=== PATIENT | male | born 1945 | race Caucasian/White ===

== ENCOUNTER → 2018-07-23 | Outpatient (CLI) | payer MEDICARE, OTHER ==
[2018-07-23] MEDS: REGADENOSON 0.4 MG/5 ML SYG (13:05)
== END | disposition home or self-care (01) ==
LOC: EKG 10:23
DX: Z01.818 Encounter for other preprocedural examination (principal)
CPT/HCPCS: 78452; 93017

== ENCOUNTER 2018-08-19 03:15 | Observation (INO) | payer MEDICARE, OTHER ==
[2018-08-19] MEDS: ASPIRIN 325 MG TAB PO (03:19)
[2018-08-19] MEDS: LIDOCAINE/MYLANTA 40 ML BTL PO (04:15)
[2018-08-19] MEDS: morphine 2 MG INJ IV ×3 (04:20→18:59)
[2018-08-19] MEDS: ONDANSETRON 4 MG INJ IV (04:20)
[2018-08-19 04:21] LABS: ADD MAN DIFF? NO
[2018-08-19 04:23] LABS: WHITE BLOOD COUNT 10.2 10^3/ul (4.8-10.8)
[2018-08-19 04:23] LABS: BASOPHILS % 0.3 % (0.0-2.0); EOSINOPHILS # 0.1 10^3/ul (0.0-0.5); EOSINOPHILS % 0.6 % (0.0-7.0); HEMATOCRIT 36.4 % (42.0-52.0); HEMOGLOBIN 10.9 g/dl (14.0-18.0); LYMPHOCYTES # 1.2 10^3/ul (0.8-2.9); LYMPHOCYTES % 11.7 % (15.0-51.0); MEAN CORPUSCULAR HEMOGLOBIN 28.9 pg (29.0-33.0); MEAN CORPUSCULAR HGB CONC 29.9 g/dl (32.0-37.0); MEAN CORPUSCULAR VOLUME 96.6 fl (82.0-101.0); MEAN PLATELET VOLUME 10.3 fl (7.4-10.4); MONOCYTES % 9.7 % (0.0-11.0); NEUTROPHIL # 7.7 10^3/ul (1.6-7.5); NEUTROPHILS % 75.6 % (39.0-77.0); PLATELET COUNT 313 10^3/UL (140-415); RED BLOOD COUNT 3.77 10^6/ul (4.70-6.10); RED CELL DISTRIBUTION WIDTH 16.2 % (11.5-14.5)
[2018-08-19 04:41] LABS: ANION GAP 10 (8-16); BLOOD UREA NITROGEN 36 mg/dl (7-20); CALCIUM 9.3 mg/dl (8.4-10.2); CARBON DIOXIDE 39 mmol/L (21-31); CHLORIDE 100 mmol/L (97-110); CREATININE 0.77 mg/dl (0.61-1.24); GLUCOSE 163 mg/dl (70-220); POTASSIUM 4.4 mmol/L (3.5-5.1); SODIUM 145 mmol/L (135-144)
[2018-08-19 04:53] LABS: B-TYPE NATRIURETIC PEPTIDE 1140 PG/ML (0-125); TROPONIN-I 0.014 ng/ml (0.000-0.120)
[2018-08-19] MEDS ORDERED: ONDANSETRON 4 MG INJ IV (07:00)
[2018-08-19] MEDS ORDERED: NACL 0.9% 3 ML SYG IV (07:00)
[2018-08-19] MEDS ORDERED: ACETAMINOPHEN 325 MG TAB PO (07:00)
[2018-08-19] MEDS ORDERED: NITROGLYCERIN (SL) 0.4 MG TAB SL (07:00)
[2018-08-19] MEDS ORDERED: BISACODYL 10 MG SUPP PR (08:00)
[2018-08-19] MEDS ORDERED: NAPROXEN 500 MG TAB PO (08:30)
[2018-08-19] MEDS: MAGNESIUM OXIDE 400 MG TAB PO ×2 (10:44→20:48)
[2018-08-19] MEDS: FLUOXETINE 20 MG CAP PO (10:44)
[2018-08-19] MEDS: ASPIRIN 81 MG TAB PO (10:45)
[2018-08-19] MEDS: MULTIVITAMINS THERAPEUTIC TAB PO (10:46)
[2018-08-19] MEDS: GABAPENTIN 300 MG CAP PO (10:46)
[2018-08-19] MEDS: LOSARTAN 50 MG TAB PO (10:46)
[2018-08-19] MEDS: PANTOPRAZOLE (EC) 40 MG TAB PO (10:46)
[2018-08-19] MEDS: MAGNESIUM HYDROXIDE 30ML CUP PO (10:47)
[2018-08-19] MEDS: FERROUS SULFATE (EC) 325 MG TAB PO (10:47)
[2018-08-19] MEDS: HEPARIN 5,000 UNIT/0.5 ML VIAL SC ×2 (11:00→21:15)
[2018-08-19 14:36] LABS: CREATINE KINASE 29 IU/L (23-200)
[2018-08-19] MEDS: GUAIFENESIN/DM 5ML CUP PO (14:44)
[2018-08-19 14:47] LABS: CK INDEX 3.9; CK-MB 1.14 ng/ml (0.0-2.4); TROPONIN-I < 0.012 ng/ml (0.000-0.120)
[2018-08-19] MEDS ORDERED: HYDROCODONE/APAP (5/325) TAB PO (19:00)
[2018-08-19 19:56] LABS: INR 0.85; PROTIME 11.7 Sec (11.9-14.9); PT RATIO 0.9
[2018-08-19 19:58] LABS: CREATINE KINASE 40 IU/L (23-200)
[2018-08-19 20:09] LABS: CK INDEX 3.1
[2018-08-19 20:11] LABS: TROPONIN-I 0.015 ng/ml (0.000-0.120)
[2018-08-19 20:17] LABS: CK-MB 1.22 ng/ml (0.0-2.4)
[2018-08-19 20:18] LABS: VALPROATE 21 ug/ml (50-100)
[2018-08-19] MEDS: TAMSULOSIN (SR) 0.4 MG CAP PO (20:48)
[2018-08-19] MEDS: ATORVASTATIN 40 MG TAB PO (20:48)
[2018-08-19] MEDS: DOCUSATE SODIUM 100 MG CAP PO (20:48)
[2018-08-19] MEDS: DIVALPROEX (ER) 500 MG TAB PO (20:49)
[2018-08-20 06:38] LABS: ADD MAN DIFF? NO
[2018-08-20 06:41] LABS: BASOPHILS % 0.4 % (0.0-2.0); EOSINOPHILS # 0.1 10^3/ul (0.0-0.5); EOSINOPHILS % 1.8 % (0.0-7.0); HEMATOCRIT 35.1 % (42.0-52.0); HEMOGLOBIN 10.2 g/dl (14.0-18.0); LYMPHOCYTES # 1.4 10^3/ul (0.8-2.9); LYMPHOCYTES % 18.9 % (15.0-51.0); MEAN CORPUSCULAR HEMOGLOBIN 28.7 pg (29.0-33.0); MEAN CORPUSCULAR HGB CONC 29.1 g/dl (32.0-37.0); MEAN CORPUSCULAR VOLUME 98.6 fl (82.0-101.0); MEAN PLATELET VOLUME 9.9 fl (7.4-10.4); MONOCYTE # 0.8 10^3/ul (0.3-0.9); NEUTROPHIL # 5.1 10^3/ul (1.6-7.5); NEUTROPHILS % 66.4 % (39.0-77.0); PLATELET COUNT 250 10^3/UL (140-415); RED BLOOD COUNT 3.56 10^6/ul (4.70-6.10); RED CELL DISTRIBUTION WIDTH 16.6 % (11.5-14.5)
[2018-08-20 06:41] LABS: WHITE BLOOD COUNT 7.6 10^3/ul (4.8-10.8)
[2018-08-20] MEDS: PANTOPRAZOLE (EC) 40 MG TAB PO (06:44)
[2018-08-20 06:58] LABS: INR 0.94; PROTIME 12.7 Sec (11.9-14.9)
[2018-08-20] MEDS ORDERED: traMADol 50 MG TAB PO (07:00)
[2018-08-20 07:33] LABS: HEMOGLOBIN A1C 5.7 % (0-5.9)
[2018-08-20 07:35] LABS: ALANINE AMINOTRANSFERASE 45 IU/L (13-69); ALBUMIN 2.7 g/dl (3.3-4.9); ALBUMIN/GLOBULIN RATIO 0.84; ALKALINE PHOSPHATASE 159 IU/L (42-121); ANION GAP 9 (8-16); ASPARTATE AMINO TRANSFERASE 43 IU/L (15-46); BILIRUBIN,INDIRECT 0.3 mg/dl (0-1.1); BILIRUBIN,TOTAL 0.3 mg/dl (0.2-1.3); BLOOD UREA NITROGEN 39 mg/dl (7-20); CALCIUM 9.1 mg/dl (8.4-10.2); CARBON DIOXIDE 36 mmol/L (21-31); CHLORIDE 103 mmol/L (97-110); CHOL/HDL RATIO 3.7 RATIO; CHOLESTEROL 136 mg/dl (100-200); CREATININE 0.95 mg/dl (0.61-1.24); GLUCOSE 108 mg/dl (70-220); HDL CHOLESTEROL 36 mg/dl (31-75); LDL CHOLESTEROL,CALCULATED 62 mg/dl; MAGNESIUM 2.2 mg/dl (1.7-2.5); POTASSIUM 4.5 mmol/L (3.5-5.1); SODIUM 143 mmol/L (135-144); TOTAL PROTEIN 5.9 g/dl (6.1-8.1); TRIGLYCERIDES 192 mg/dl (0-149)
[2018-08-20 08:03] LABS: THYROID STIMULATING HORMONE 0.813 MIU/L (0.465-4.680)
[2018-08-20] MEDS: ASPIRIN 81 MG TAB PO (08:38)
[2018-08-20] MEDS: MAGNESIUM HYDROXIDE 30ML CUP PO (08:38)
[2018-08-20] MEDS: ASCORBIC ACID 500 MG TAB PO (08:38)
[2018-08-20] MEDS: MAGNESIUM OXIDE 400 MG TAB PO ×2 (08:38→21:31)
[2018-08-20] MEDS: GABAPENTIN 300 MG CAP PO (08:39)
[2018-08-20] MEDS: OLANZAPINE 5 MG TAB PO (08:39)
[2018-08-20] MEDS: FERROUS SULFATE (EC) 325 MG TAB PO (08:39)
[2018-08-20] MEDS: LOSARTAN 50 MG TAB PO (08:39)
[2018-08-20] MEDS: MULTIVITAMINS THERAPEUTIC TAB PO (08:39)
[2018-08-20] MEDS: FLUOXETINE 20 MG CAP PO (08:39)
[2018-08-20] MEDS: HEPARIN 5,000 UNIT/0.5 ML VIAL SC (08:43)
[2018-08-20] MEDS ORDERED: NON-FORMULARY/PATIENT OWN MED (Cranberry Extract (Cranberry) 425 MG) PO (09:00)
[2018-08-20] MEDS ORDERED: NON-FORMULARY/PATIENT OWN MED (Cran/Vitc/Mannose/Inulin/Brom (Uti-Stat Liquid) 3,875 MG) PO (09:00)
[2018-08-20] MEDS: morphine 2 MG INJ IV ×2 (10:03→21:41)
[2018-08-20] MEDS ORDERED: IOHEXOL 100 ML (10:09)
[2018-08-20] MEDS ORDERED: SOD CHLORIDE 0.9% 100 ML (10:09)
[2018-08-20] MEDS: IBUPROFEN 400 MG TAB PO (12:02)
[2018-08-20] MEDS: APIXABAN 5 MG TABLET PO ×2 (12:41→21:31)
[2018-08-20] MEDS: TAMSULOSIN (SR) 0.4 MG CAP PO (21:30)
[2018-08-20] MEDS: DIVALPROEX (ER) 500 MG TAB PO (21:30)
[2018-08-20] MEDS: DOCUSATE SODIUM 100 MG CAP PO (21:30)
[2018-08-20] MEDS: ATORVASTATIN 40 MG TAB PO (21:31)
[2018-08-21] MEDS: PANTOPRAZOLE (EC) 40 MG TAB PO (06:03)
[2018-08-21] MEDS: LOSARTAN 50 MG TAB PO (09:00)
[2018-08-21] MEDS: GABAPENTIN 300 MG CAP PO (09:49)
[2018-08-21] MEDS: FERROUS SULFATE (EC) 325 MG TAB PO (09:52)
[2018-08-21] MEDS: MAGNESIUM OXIDE 400 MG TAB PO (09:52)
[2018-08-21] MEDS: APIXABAN 5 MG TABLET PO (09:53)
[2018-08-21] MEDS: OLANZAPINE 5 MG TAB PO (09:53)
[2018-08-21] MEDS: ASCORBIC ACID 500 MG TAB PO (09:53)
[2018-08-21] MEDS: MULTIVITAMINS THERAPEUTIC TAB PO (09:53)
[2018-08-21] MEDS: FLUOXETINE 20 MG CAP PO (09:53)
[2018-08-21] MEDS: MAGNESIUM HYDROXIDE 30ML CUP PO (09:55)
[2018-08-21] MEDS: morphine 2 MG INJ IV ×2 (10:21→14:51)
[2018-08-27] MEDS ORDERED: APIXABAN 5 MG TABLET PO (09:00)
== END 2018-08-21 18:10 ==
LOC: E/R 03:15 → TEL 04:44
DX: R07.9 Chest pain, unspecified (principal); Z86.718 Personal history of other venous thrombosis and embolism; Z79.01 Long term (current) use of anticoagulants; G89.29 Other chronic pain; M54.5 Low back pain; I11.0 Hypertensive heart disease with heart failure; I50.9 Heart failure, unspecified; E11.9 Type 2 diabetes mellitus without complications; R94.31 Abnormal electrocardiogram [ECG] [EKG]
CPT/HCPCS: 36415; 71045; 71250; 80048; 80053; 80061; 80164; 82550; 82553; 82962; 83036; 83735; 83880; 84443; 84484; 85025; 85610; 93005; 93306; 93970; 96374; 96375; 99285-25; G0378

== ENCOUNTER 2018-08-25 21:04 | Emergency (ER) | payer MEDICARE, OTHER ==
[2018-08-25] MEDS: morphine 4 MG/ML VIAL IV (22:04)
[2018-08-25] MEDS: ONDANSETRON 4 MG INJ IV (22:04)
[2018-08-25 22:51] LABS: ADD MAN DIFF? NO
[2018-08-25 22:53] LABS: WHITE BLOOD COUNT 9.6 10^3/ul (4.8-10.8)
[2018-08-25 22:53] LABS: BASOPHILS % 0.3 % (0.0-2.0); EOSINOPHILS # 0.1 10^3/ul (0.0-0.5); EOSINOPHILS % 1.2 % (0.0-7.0); HEMATOCRIT 31.9 % (42.0-52.0); HEMOGLOBIN 9.9 g/dl (14.0-18.0); LYMPHOCYTES # 1.2 10^3/ul (0.8-2.9); LYMPHOCYTES % 12.9 % (15.0-51.0); MEAN CORPUSCULAR HEMOGLOBIN 29.3 pg (29.0-33.0); MEAN CORPUSCULAR VOLUME 94.4 fl (82.0-101.0); MEAN PLATELET VOLUME 9.9 fl (7.4-10.4); MONOCYTE # 0.8 10^3/ul (0.3-0.9); MONOCYTES % 8.5 % (0.0-11.0); NEUTROPHIL # 7.2 10^3/ul (1.6-7.5); NEUTROPHILS % 74.9 % (39.0-77.0); PLATELET COUNT 187 10^3/UL (140-415); RED BLOOD COUNT 3.38 10^6/ul (4.70-6.10); RED CELL DISTRIBUTION WIDTH 17.6 % (11.5-14.5)
[2018-08-25 23:10] LABS: ALANINE AMINOTRANSFERASE 25 IU/L (13-69); ALBUMIN 2.7 g/dl (3.3-4.9); ALKALINE PHOSPHATASE 152 IU/L (42-121); ANION GAP 11 (8-16); ASPARTATE AMINO TRANSFERASE 30 IU/L (15-46); BILIRUBIN,INDIRECT 0.3 mg/dl (0-1.1); BILIRUBIN,TOTAL 0.3 mg/dl (0.2-1.3); BLOOD UREA NITROGEN 41 mg/dl (7-20); CALCIUM 9.1 mg/dl (8.4-10.2); CARBON DIOXIDE 28 mmol/L (21-31); CHLORIDE 105 mmol/L (97-110); CREATINE KINASE 28 IU/L (23-200); CREATININE 0.89 mg/dl (0.61-1.24); GLUCOSE 107 mg/dl (70-220); POTASSIUM 4.2 mmol/L (3.5-5.1); SODIUM 140 mmol/L (135-144); TOTAL PROTEIN 5.7 g/dl (6.1-8.1)
[2018-08-25 23:19] LABS: INR 1.08; PROTIME 14.1 Sec (11.9-14.9); PT RATIO 1.1
[2018-08-25 23:20] LABS: PARTIAL THROMBOPLASTIN TIME 40.6 Sec (23.0-35.0)
[2018-08-25 23:22] LABS: B-TYPE NATRIURETIC PEPTIDE 692 PG/ML (0-125); CK INDEX 6.9; CK-MB 1.94 ng/ml (0.0-2.4); TROPONIN-I < 0.012 ng/ml (0.000-0.120)
== END 2018-08-26 01:56 | disposition home or self-care (01) ==
LOC: E/R 08-26 01:56
DX: R07.89 Other chest pain (principal); J44.9 Chronic obstructive pulmonary disease, unspecified; I11.0 Hypertensive heart disease with heart failure; I50.9 Heart failure, unspecified; Z79.01 Long term (current) use of anticoagulants; Z87.891 Personal history of nicotine dependence
CPT/HCPCS: 71045; 80053; 82550; 82553; 83880; 84484; 85025; 85610; 85730; 93005; 96374; 96375; 99285-25

== ENCOUNTER 2019-03-10 17:29 | Observation (INO) | payer MEDICARE, OTHER ==
[2019-03-10 19:06] LABS: ADD MAN DIFF? NO
[2019-03-10 19:09] LABS: WHITE BLOOD COUNT 6.6 10^3/ul (4.8-10.8)
[2019-03-10 19:09] LABS: HEMATOCRIT 32.2 % (42.0-52.0); HEMOGLOBIN 9.7 g/dl (14.0-18.0); LYMPHOCYTES # 0.7 10^3/ul (0.8-2.9); MEAN CORPUSCULAR HEMOGLOBIN 29.8 pg (29.0-33.0); MEAN CORPUSCULAR HGB CONC 30.1 g/dl (32.0-37.0); MEAN CORPUSCULAR VOLUME 99.1 fl (82.0-101.0); MEAN PLATELET VOLUME 9.8 fl (7.4-10.4); MONOCYTE # 0.5 10^3/ul (0.3-0.9); MONOCYTES % 8.2 % (0.0-11.0); NEUTROPHIL # 5.4 10^3/ul (1.6-7.5); NEUTROPHILS % 81.2 % (39.0-77.0); PLATELET COUNT 264 10^3/UL (140-415); RED BLOOD COUNT 3.25 10^6/ul (4.70-6.10); RED CELL DISTRIBUTION WIDTH 15.5 % (11.5-14.5)
[2019-03-10] MEDS: NITROGLYCERIN 2% 1 GM OINT PKT TD (19:29)
[2019-03-10 19:30] LABS: ANION GAP 4 (5-13); BLOOD UREA NITROGEN 26 mg/dl (7-20); CALCIUM 9.2 mg/dl (8.4-10.2); CARBON DIOXIDE 32 mmol/L (21-31); CHLORIDE 104 mmol/L (97-110); CREATININE 0.67 mg/dl (0.61-1.24); GLUCOSE 191 mg/dl (70-220); POTASSIUM 4.2 mmol/L (3.5-5.1); SODIUM 140 mmol/L (135-144)
[2019-03-10 19:42] LABS: TROPONIN-I < 0.012 ng/ml (0.000-0.120)
[2019-03-10] MEDS ORDERED: ONDANSETRON 4 MG INJ IV (22:00)
[2019-03-10] MEDS ORDERED: NITROGLYCERIN (SL) 0.4 MG TAB SL (22:00)
[2019-03-10] MEDS ORDERED: ALBUTEROL/IPRATROPIUM (NEB) 3 ML AMP HHN (22:00)
[2019-03-10] MEDS ORDERED: NACL 0.9% 3 ML SYG IV (22:00)
[2019-03-10] MEDS ORDERED: ACETAMINOPHEN 325 MG TAB PO (22:00)
[2019-03-10] MEDS: HYDROCODONE/APAP (5/325) TAB PO (22:05)
[2019-03-11] MEDS: morphine 4 MG/ML VIAL IV ×2 (00:50→06:12)
[2019-03-11 01:32] LABS: CK INDEX 6.1; CK-MB 1.83 ng/ml (0.0-2.4); CREATINE KINASE 30 IU/L (23-200); TROPONIN-I < 0.012 ng/ml (0.000-0.120)
[2019-03-11] MEDS: GUAIFENESIN 20 MG/ML 5ML CUP PO ×3 (02:17→18:30)
[2019-03-11] MEDS: ZOLPIDEM 5 MG TAB PO (02:49)
[2019-03-11] MEDS: PANTOPRAZOLE (EC) 40 MG TAB PO (06:13)
[2019-03-11] MEDS: FERROUS SULFATE (EC) 325 MG TAB PO (08:16)
[2019-03-11] MEDS: MAGNESIUM OXIDE 400 MG TAB PO ×2 (08:16→21:50)
[2019-03-11] MEDS: GABAPENTIN 300 MG CAP PO (08:16)
[2019-03-11] MEDS: ASPIRIN 81 MG TAB PO (08:16)
[2019-03-11] MEDS: MULTIVITAMINS THERAPEUTIC TAB PO (08:16)
[2019-03-11] MEDS: OLANZAPINE 5 MG TAB PO (08:16)
[2019-03-11] MEDS: FLUOXETINE 20 MG CAP PO (08:17)
[2019-03-11] MEDS: LOSARTAN 50 MG TAB PO (08:17)
[2019-03-11] MEDS: ENOXAPARIN 40 MG/0.4 ML SYG SC (08:22)
[2019-03-11 11:26] LABS: ADD MAN DIFF? NO
[2019-03-11 11:32] LABS: BASOPHILS % 0.6 % (0.0-2.0); EOSINOPHILS # 0.1 10^3/ul (0.0-0.5); EOSINOPHILS % 1.7 % (0.0-7.0); HEMATOCRIT 30.7 % (42.0-52.0); HEMOGLOBIN 9.3 g/dl (14.0-18.0); LYMPHOCYTES # 1.5 10^3/ul (0.8-2.9); LYMPHOCYTES % 29.3 % (15.0-51.0); MEAN CORPUSCULAR HEMOGLOBIN 29.8 pg (29.0-33.0); MEAN CORPUSCULAR HGB CONC 30.3 g/dl (32.0-37.0); MEAN CORPUSCULAR VOLUME 98.4 fl (82.0-101.0); MEAN PLATELET VOLUME 9.7 fl (7.4-10.4); MONOCYTE # 0.6 10^3/ul (0.3-0.9); MONOCYTES % 11.6 % (0.0-11.0); NEUTROPHILS % 56.2 % (39.0-77.0); PLATELET COUNT 280 10^3/UL (140-415); RED BLOOD COUNT 3.12 10^6/ul (4.70-6.10); RED CELL DISTRIBUTION WIDTH 16.1 % (11.5-14.5)
[2019-03-11 11:32] LABS: WHITE BLOOD COUNT 5.3 10^3/ul (4.8-10.8)
[2019-03-11 11:51] LABS: IRON 78 ug/dl (35-150)
[2019-03-11 11:52] LABS: ALANINE AMINOTRANSFERASE 32 IU/L (13-69); ALBUMIN 3.1 g/dl (3.3-4.9); ALKALINE PHOSPHATASE 93 IU/L (42-121); ANION GAP 2 (5-13); ASPARTATE AMINO TRANSFERASE 29 IU/L (15-46); BILIRUBIN,INDIRECT 0.1 mg/dl (0-1.1); BILIRUBIN,TOTAL 0.1 mg/dl (0.2-1.3); BLOOD UREA NITROGEN 23 mg/dl (7-20); CALCIUM 9.4 mg/dl (8.4-10.2); CARBON DIOXIDE 35 mmol/L (21-31); CHLORIDE 104 mmol/L (97-110); CHOL/HDL RATIO 2.8 RATIO; CHOLESTEROL 149 mg/dl (100-200); CREATININE 0.69 mg/dl (0.61-1.24); GLUCOSE 95 mg/dl (70-220); HDL CHOLESTEROL 52 mg/dl (31-75); LDL CHOLESTEROL,CALCULATED 70 mg/dl; POTASSIUM 4.4 mmol/L (3.5-5.1); SODIUM 141 mmol/L (135-144); TOTAL PROTEIN 5.9 g/dl (6.1-8.1); TRIGLYCERIDES 135 mg/dl (0-149)
[2019-03-11 12:02] LABS: % IRON SATURATION 30 % SAT (22-52); TOTAL IRON BINDING CAPACITY 259 ug/dl (241-421)
[2019-03-11 12:12] LABS: CREATINE KINASE 22 IU/L (23-200)
[2019-03-11 12:25] LABS: CK INDEX 7.7; CK-MB 1.69 ng/ml (0.0-2.4); TROPONIN-I < 0.012 ng/ml (0.000-0.120)
[2019-03-11] MEDS: morphine 2 MG INJ IV ×2 (12:27→17:18)
[2019-03-11 15:01] LABS: TROPONIN-I < 0.012 ng/ml (0.000-0.120)
[2019-03-11] MEDS: REGADENOSON 0.4 MG/5 ML SYG (16:46)
[2019-03-11] MEDS ORDERED: ZOLPIDEM 5 MG TAB PO (21:00)
[2019-03-11] MEDS: DIVALPROEX (ER) 500 MG TAB PO (21:50)
[2019-03-11] MEDS: ATORVASTATIN 40 MG TAB PO (21:50)
[2019-03-12] MEDS: morphine 2 MG INJ IV ×2 (01:16→08:22)
[2019-03-12 05:56] LABS: ADD MAN DIFF? NO
[2019-03-12] MEDS: PANTOPRAZOLE (EC) 40 MG TAB PO (06:03)
[2019-03-12 06:05] LABS: BASOPHILS % 0.3 % (0.0-2.0); EOSINOPHILS # 0.1 10^3/ul (0.0-0.5); EOSINOPHILS % 2.2 % (0.0-7.0); HEMATOCRIT 33.1 % (42.0-52.0); HEMOGLOBIN 9.7 g/dl (14.0-18.0); LYMPHOCYTES # 1.3 10^3/ul (0.8-2.9); LYMPHOCYTES % 21.1 % (15.0-51.0); MEAN CORPUSCULAR HEMOGLOBIN 29.8 pg (29.0-33.0); MEAN CORPUSCULAR HGB CONC 29.3 g/dl (32.0-37.0); MEAN CORPUSCULAR VOLUME 101.5 fl (82.0-101.0); MEAN PLATELET VOLUME 9.7 fl (7.4-10.4); MONOCYTE # 0.6 10^3/ul (0.3-0.9); MONOCYTES % 9.4 % (0.0-11.0); NEUTROPHILS % 66.5 % (39.0-77.0); PLATELET COUNT 274 10^3/UL (140-415); RED BLOOD COUNT 3.26 10^6/ul (4.70-6.10)
[2019-03-12 06:34] LABS: MAGNESIUM 1.8 mg/dl (1.7-2.5)
[2019-03-12 06:34] LABS: PHOSPHORUS 4.2 mg/dl (2.5-4.9)
[2019-03-12 06:51] LABS: ANION GAP 4 (5-13); BLOOD UREA NITROGEN 25 mg/dl (7-20); CALCIUM 8.7 mg/dl (8.4-10.2); CARBON DIOXIDE 35 mmol/L (21-31); CHLORIDE 100 mmol/L (97-110); CREATININE 0.75 mg/dl (0.61-1.24); GLUCOSE 106 mg/dl (70-220); POTASSIUM 4.3 mmol/L (3.5-5.1); SODIUM 139 mmol/L (135-144)
[2019-03-12] MEDS: CEPASTAT LOZENGE MT (08:20)
[2019-03-12] MEDS: MULTIVITAMINS THERAPEUTIC TAB PO (08:21)
[2019-03-12] MEDS: FLUOXETINE 20 MG CAP PO (08:21)
[2019-03-12] MEDS: LOSARTAN 50 MG TAB PO (08:21)
[2019-03-12] MEDS: FERROUS SULFATE (EC) 325 MG TAB PO (08:21)
[2019-03-12] MEDS: APIXABAN 5 MG TABLET PO (08:21)
[2019-03-12] MEDS: ASPIRIN 81 MG TAB PO (08:21)
[2019-03-12] MEDS: GABAPENTIN 300 MG CAP PO (08:21)
[2019-03-12] MEDS: OLANZAPINE 5 MG TAB PO (08:21)
[2019-03-12] MEDS: MAGNESIUM OXIDE 400 MG TAB PO (08:21)
== END 2019-03-12 11:46 | disposition home or self-care (01) ==
LOC: 6WM 19:52 → E/R 17:29
DX: R07.9 Chest pain, unspecified (principal); I11.0 Hypertensive heart disease with heart failure; I50.9 Heart failure, unspecified; J44.9 Chronic obstructive pulmonary disease, unspecified; G40.909 Epilepsy, unspecified, not intractable, without status epilepticus; F31.9 Bipolar disorder, unspecified; I25.10 Atherosclerotic heart disease of native coronary artery without angina pectoris; M54.5 Low back pain; G89.29 Other chronic pain; D64.9 Anemia, unspecified; R53.81 Other malaise; Z86.718 Personal history of other venous thrombosis and embolism
CPT/HCPCS: 36415; 71045; 78452; 80048; 80053; 80061; 82550; 82553; 82728; 83036; 83540; 83735; 84100; 84484; 85025; 93005; 93017; 93306; 97163; 99285-25; G0378